=== PATIENT | male | born 1945 | race Caucasian/White ===

== ENCOUNTER 2022-10-03 15:22 | Emergency (ER) | payer OTHER, MEDICARE ==
[~2022-10-03 15:22] MED LIST: EPINEPHrine 1:10,000 1 MG/10 ML Syringe IV PRN; Rocuronium 50 MG/5 ML Vial ONE
[2022-10-03] MEDS ORDERED: Norepinephrine /D5W 4 MG/250 ML Premix ONE (16:01)
[2022-10-03] MEDS ORDERED: Tranexamic Acid 1,000 MG/10 ML Vial ONE (16:01)
[2022-10-03] MEDS ORDERED: fentaNYL 100 MCG/2 ML SDV ONE (16:01)
[2022-10-03] MEDS ORDERED: Ketamine 200 MG/20 ML MDV ONE (16:01)
[2022-10-03 16:07] LABS: HEMATOCRIT 43.3 % (40.0-52.0); HEMOGLOBIN 14.4 g/dL (14.0-18.0); MEAN CORPUSCULAR HEMOGLOBIN 31.6 pg (26.0-32.0); MEAN CORPUSCULAR HGB CONC 33.3 g/dL (32.0-36.0); PLATELET COUNT,PLT 279 x10^3/uL (130-400); RED BLOOD CELL COUNT 4.56 x10^6/uL (4.5-6.0)
[2022-10-03 16:12] LABS: WHITE BLOOD CELL COUNT,WBC 26.4 x10^3/uL (4.0-10.0)
[2022-10-03 16:21] LABS: BAND PERCENT MAN 9 % (0-6); EOSINOPHILS ABSOLUTE MAN 0.5 x10^3/uL (0.0-0.5); EOSINOPHILS PERCENT MAN 2 % (0-4); GIANT PLATELETS FEW; LYMPHOCYTES ABSOLUTE MAN 1.8 x10^3/uL (1.0-4.8); LYMPHOCYTES PERCENT MAN 3 % (25-50); METAMYELOCYTE PERCENT MAN 1 % (0); MONOCYTES ABSOLUTE MAN 0.8 x10^3/uL (0.0-0.8); MONOCYTES PERCENT MAN 3 % (2-11); PLATELET COUNT ESTIMATE ADEQUATE; SEG NEUTROPHILS PERCENT MAN 78 % (50-80); TOXIC GRANULATION 2+ MODERATE; VACUOLATED NEUTROPHILS 2+ MODERATE
[2022-10-03] MEDS ORDERED: EPINEPHrine 1 MG in Sodium Chloride 0.9% 100 ML IV SCH (16:23)
[2022-10-03 16:26] LABS: BLOOD UREA NITROGEN,BUN 21 mg/dL (7-18); CALCIUM 8.5 mg/dL (8.5-10.1); CARBON DIOXIDE,CO2 19 mmol/L (21-32); CHLORIDE,CL 106 mmol/L (98-107); CREATININE 1.6 mg/dL (0.70-1.30); GLUCOSE RANDOM 216 mg/dL (70-99); SODIUM,NA 141 mmol/L (136-145)
[2022-10-03 16:27] LABS: ESTIMATED GFR 45 mL/min (>=60)
[2022-10-03] MEDS ORDERED: cefTRIAXone 2 GM Vial IVPUSH ONE (16:31)
[2022-10-03 16:38] LABS: INR 1.2 (2.0-3.5); PROTHROMBIN TIME 12.4 SEC (9.5-12.2); PTT,PARTIAL THROMBOPLSTIN TIME 26.3 SEC (23.6-33.6)
[2022-10-03 17:03] LABS: BASE EXCESS ARTERIAL,POC -19 mmol/L ((-2)-3); HCO3 ARTERIAL,POC 13.5 mmol/L (21-28); O2 SATURATION ARTERIAL,POC 93.7 % (94-98); PCO2 ARTERIAL,POC 61 mmHg (35-48); PH ARTERIAL,POC 6.95 pH (7.35-7.45); PO2 ARTERIAL,POC 111 mmHg (83-108); TCO2 ARTERIAL,POC 13.7 mmol/L (22-29)
[2022-10-03 17:07] LABS: D-DIMER QUANTITATIVE > 35.20 mg/LFEU (<=0.58)
[2022-10-03 17:11] LABS: MAGNESIUM 2.5 mg/dL (1.8-2.4)
[2022-10-03] MEDS ORDERED: EPINEPHrine 1:10,000 1 MG/10 ML Syringe ONE (17:11)
[2022-10-03] MEDS ORDERED: Sodium Bicarbonate 8.4% 50 MEQ/50 ML Syringe ONE (17:12)
[2022-10-03 17:14] LABS: ETHANOL BLOOD MEDICAL < 3 mg/dL (0-3)
[2022-10-03 17:30] LABS: LACTIC ACID 9.9 mmol/L (0.4-2.0)
== END 2022-10-03 18:18 | disposition short-term general hospital (02) ==
LOC: VM.ED 15:22
DX: I46.9 Cardiac arrest, cause unspecified (principal); T79.4XXA Traumatic shock, initial encounter; E87.20 Acidosis, unspecified; R00.1 Bradycardia, unspecified
CPT/HCPCS: 31500; 32551; 36415; 36430; 36600; 43752; 51702; 71045; 80048; 80307; 82803; 83605; 83735; 84484; 85025; 85379; 85610; 85730; 86900; 86901; 86920; 86922; 92950; 93005; 93010; 94002; 96365; 96366; 96367; 96368; 96375; 96376; 99285-25; 99291; 99292-GF; C1729; J0171; J3010; J3490; P9016